=== PATIENT | male | born 1995 | race Caucasian/White ===

== ENCOUNTER → 2016-04-24 | Day surgery (SDC) | payer OTHER ==
[~2016-04-24] MED LIST: LIDOCAINE 1% INJ-PF (10 MG/ML) 30 ML SDV ONE
== END ==
LOC: RAD 12:25
PROVIDERS: ATTEND Orthopaedic Surgery
PROC: BP0 Imaging, Non-Axial Upper Bones, Plain Radiography (ICD-10-PCS; principal; 2016-04-24)
DX: M25.322 Other instability, left elbow (principal)
CPT/HCPCS: 73222; 73085; 77002; A9576; J3490

== ENCOUNTER 2016-05-29 10:20 | Day surgery (SDC) | payer OTHER ==
[2016-05-22 10:22] LABS: APPEARANCE,URINE CLEAR; BILIRUBIN,URINE NEGATIVE (NEGATIVE); GLUCOSE, URINE NEGATIVE (NEGATIVE); KETONES,URINE TRACE mg/dL (NEGATIVE); LEUKOCYTE ESTERASE,URINE NEGATIVE (NEGATIVE); NITRITE,URINE NEGATIVE (NEGATIVE); PROTEIN,URINE NEGATIVE (NEGATIVE); URINE SPECIFIC GRAVITY 1.017; UROBILINOGEN,URINE NEGATIVE mg/dL (<2.0)
[2016-05-22 10:48] LABS: ABSOLUTE EOSINOPHILS # (AUTO) 0.3 10^3/uL (0.0-0.6); ABSOLUTE LYMPHOCYTES (AUTO) 2.5 10^3/uL (0.5-4.7); ABSOLUTE MONOCYTES (AUTO) 0.8 10^3/uL (0.1-1.4); ABSOLUTE NEUT (AUTO) 3.5 10^3/uL (1.7-8.2); BASOPHILS % (AUTO) 0.6 % (0-2); EOSINOPHILS % (AUTO) 4.2 % (0-6); HEMATOCRIT 46.5 % (37.9-51.0); HEMOGLOBIN 16.3 g/dL (13.5-17.0); HGB HCT DIFFERENCE 2.4; LYMPHOCYTES % (AUTO) 35.4 % (13-45); MEAN CORPUSCULAR HEMOGLOBIN 30.1 pg (27.0-33.4); MEAN CORPUSCULAR HGB CONC 35.2 g/dL (32.0-36.0); MEAN CORPUSCULAR VOLUME 86 fl (80-97); MONOCYTES % (AUTO) 10.6 % (3-13); RED BLOOD COUNT 5.43 10^6/uL (4.35-5.55); RED CELL DISTRIBUTION WIDTH 13.1 % (11.5-14.0); SEGMENTED NEUTROPHILS % (AUTO) 49.2 % (42-78); WHITE BLOOD COUNT 7.1 10^3/uL (4.0-10.5)
--- NOTE | 2016-05-22 11:01 | EKG REPORT ---
SEVERITY:- OTHERWISE NORMAL ECG - SINUS BRADYCARDIA : Confirmed by: Alan Wharton 22-May-2016 11:01:02
[2016-05-22 11:09] LABS: ANION GAP 13 (5-19); BLOOD UREA NITROGEN 15 mg/dL (7-20); CALCIUM 10.1 mg/dL (8.4-10.2); CARBON DIOXIDE 29 mmol/L (22-30); CHLORIDE 103 mmol/L (98-107); CREATININE RESULT 1.01 mg/dL (0.52-1.25); GLUCOSE 70 mg/dL (75-110); POTASSIUM 4.4 mmol/L (3.6-5.0); SODIUM 145.3 mmol/L (137-145)
[~2016-05-29 10:20] MED LIST changes: +BUPIVACAINE HCL 0.5 % INJ/PF 30 ML SDV ONE; +LACTATED RINGERS 1000 ML IV PRN; -LIDOCAINE 1% INJ-PF (10 MG/ML) 30 ML SDV ONE
[2016-05-29] MEDS ORDERED: CEFAZOLIN 2 GM/D5W RTU 2 GM/50 ML RTUPB IV ONE (10:30)
[2016-05-29] MEDS ORDERED: HYDROMORPHONE HCL INJ/PF 2 MG/ML AMPULE ONE ×2 (13:50→16:36)
[2016-05-29] MEDS ORDERED: MIDAZOLAM 2 MG/2 ML INJ ONE (13:51)
[2016-05-29] MEDS ORDERED: FENTANYL CITRATE INJ/PF 100 MCG/2 ML AMPUL ONE (13:51)
[2016-05-29] MEDS ORDERED: PROPOFOL INJ 200 MG/20 ML VIAL IV ONE (13:51)
[2016-05-29] MEDS ORDERED: FENTANYL CITRATE INJ/PF 100 MCG/2 ML AMPUL IV PRN ×3 (14:33)
[2016-05-29] MEDS ORDERED: MORPHINE SULFATE 10 MG/ML INJ IV PRN ×2 (14:33→16:31)
[2016-05-29] MEDS ORDERED: DIPHENHYDRAMINE HCL 50 MG/ML VIAL IV PRN (14:33)
[2016-05-29] MEDS ORDERED: MEPERIDINE HCL/PF INJ 25 MG/1 ML DISP.SYRIN IV PRN (14:33)
[2016-05-29] MEDS ORDERED: PROMETHAZINE HCL INJ 25 MG/1 ML VIAL IV PRN (14:33)
[2016-05-29] MEDS ORDERED: LIDOCAINE 2% INJ-PF (20 MG/ML) 10 ML AMPUL ONE (14:49)
[2016-05-29] MEDS ORDERED: DEXAMETHASONE SOD PHOSPHATE INJ 4 MG/1 ML VIAL ONE (14:49)
[2016-05-29] MEDS ORDERED: ONDANSETRON HCL INJ/PF 4 MG/2 ML SDV ONE (14:49)
[2016-05-29] MEDS ORDERED: SUCCINYLCHOLINE CHLORIDE INJ 200 MG/10 ML VIAL ONE (14:49)
[2016-05-29] MEDS ORDERED: OXYCODONE-ACETAMINOPHEN 5-325 MG TABLET PO PRN (16:31)
--- NOTE | 2016-05-29 16:31 | PDOC DISCHARGE SUMMARY ---
Discharge Summary (SDC) - Discharge Final Diagnosis: Left elbow contracture Date of Surgery: 05/29/16 Discharge Date: 05/29/16 Condition: Good Treatment or Instructions: Schedule Follow Up w/ Dr. Moreno Yousif @ [facility] to be seen in 10-14 days or as scheduled Morgan: Dana: [place]: Keep splint clean/dry/intact. Ice and elevate May begin finger range of motion attempting to make full fist. Stool softener of choice when on pain medication. Prescriptions: Oxycodone HCl/Acetaminophen [Percocet 5-325 mg Tablet] 1 - 2 tab PO ASDIR PRN # 50 tablet PRN Reason: Discharge Diet: As Tolerated Respiratory Treatments at Home: Deep Breathing/Coughing Discharge Activity: No Lifting Over 10 Pounds, No Lifting/Push/Pulling Report the Following to Your Physician Immediately: Increase in Pain, Fever over 101 Degrees, Unusual Bleeding, Redness, Swelling, Warmth, Increased Soreness, Drainage-Foul Smelling, Numbness, Tingling Sensation
[2016-05-29] MEDS ORDERED: KETOROLAC TROMETHAMINE INJ/PF 30 MG/1 ML SDV ONE (16:36)
[2016-05-29] MEDS ORDERED: ACETAMINOPHEN 100 ML IV ONE (16:37)
--- NOTE | 2016-05-29 16:43 | Operative Report ---
Operative Report DATE OF SURGERY: 05/29/16 PREOPERATIVE DIAGNOSIS: Contracture Left Elbow w/ Ulnar Nerve Compression POSTOPERATIVE DIAGNOSIS: Same OPERATION: Left Cubital Tunnel Release w/ Ulnar Nerve Subcutaneous Transposition , Capsulotomy w/ Release Posterior Bundle UCL SURGEON: LAILA LEVI ANESTHESIA: GA COMPLICATIONS: None ESTIMATED BLOOD LOSS: Minimal PROCEDURE: Indication for above procedure: 21-year-old male who sustained a closed dislocation July 2015. Patient subsequently continued to have pain and instability underwent lateral ulnar collateral ligament reconstruction. Patient's instability improved but continued to have stiffness. At that point an MRI was ordered demonstrating no evidence of intra-articular derangement or ligamentous disruption. We then discussed treatment options including operative versus nonoperative intervention. After discussing treatment options patient consented for the surgical procedure. Procedure In Detail: Patient was seen and evaluated in the preoperative holding area. The LEFT upper extremity was initialized and marked. Patient received 2g of Ancef IV for bacterial prophylaxis. Patient was taken back to the operative room where transferred to the operative table and placed under general anesthesia. Once they were adequately anesthetized a nonsterile tourniquet was placed on the upper extremity. A surgical team debriefing was performed ensuring all instrumentation was available, the surgical procedure was discussed with possible concerns reviewed. Prior to formal prepping and draping C-arm fluoroscopy was obtained for examination under anesthesia. There is no evidence of medial or lateral stability, negative pivot shift test. The upper extremity was prepped with ChloraPrep and draped in a sterile fashion. A timeout was done identifying correct patient, procedure and extremity everyone in attendance agree with this and verbalized no concerns. The extremity was exsanguinated the tourniquet was inflated to 250 mmHg. A longitudinal skin incision was made centered over the cubital tunnel 6 cm proximal to the medial epicondyle 4 cm distal. Blunt dissection was performed to the subcutaneous tissue branches of the medial antebrachial cutaneous nerve were identified and retracted. Proximally the ulnar nerve was identified. Neurolysis was performed to the medial triceps. Dissection of the medial intermuscular septum was excised. During neurolysis the posterior vasculature accompanying the ulnar nerve was freed with the overlying soft tissue and transposed anteriorly with the nerve. The nerve was marked with a vessel loop and continued to be free of compression distally as it entered the 2 heads of the flexor carpi ulnaris. The first motor branch of the ulnar nerve was identified and neurolysed and transposed anteriorly with the nerve. The nerve did demonstrate compression as it entered the cubital tunnel with notable edema. Once the nerve was transposed anteriorly the posterior bundle of the ulnar collateral ligament was identified. The posterior bundle was released distal to proximally. Once the release was complete patient's passive flexion significant improved to greater than 150. There is no crepitus with range of motion. I then carefully elevated the posterior triceps releasing any posterior capsule from the humerus. The anterior capsule was also elevated proximally off the humerus. I then proceeded with ulnar nerve transposition. A small pouch was established anterior to the medial epicondyle. This was then secured with interrupted 2-0 Vicryl suture while maintaining a [place] over the nerve to ensure no significant compression occurred. With elbow flexion and extension there is no evidence of nerve compression or kinking proximally or distally. I then obtained C-arm fluoroscopy which demonstrated no evidence of medial or lateral collateral ligament disruption. No evidence of joint malalignment. The wound was then irrigated with normal saline and the tourniquet was deflated. A peripheral vasculature was coagulated with bipolar cautery until the wound was dry. 20 mL of 0.5% Marcaine without epinephrine was injected for postoperative pain control. Subcutaneous tissues were closed with interrupted 3-0 Monocryl skin was closed with felix. Wound was dressed with Xeroform, 4 x 4's and ABDs. Patient was placed in a posterior splint at 90 . Sponge counts, instrument counts, needle counts counts were correct. Patient was then awoken from anesthesia. Transferred from the operating room table to the operating room stretcher. There was no intraoperative complications patient tolerated procedure well stable to PACU. Postoperative plan: Patient will follow-up in the office in 2 weeks. Prior to his 2 week appointment we will set him up with occupational therapy beginning 06/01/16 focusing on aggressive flexion and extension range of motion.
[2016-05-29 18:36] VITALS: BP 120/70
== END 2016-05-29 18:25 | disposition home or self-care (01) ==
LOC: OROUT 10:20
PROVIDERS: ATTEND Orthopaedic Surgery
PROC: 0RNM0ZZ Release Left Elbow Joint, Open Approach (ICD-10-PCS; 2016-05-29)
PROC: 0MN Bursae and Ligaments, Release (ICD-10-PCS; 2016-05-29)
PROC: 01N40ZZ Release Ulnar Nerve, Open Approach (ICD-10-PCS; principal; 2016-05-29 13:45)
DX: M24.522 Contracture, left elbow (principal); G56.22 Lesion of ulnar nerve, left upper limb; M25.522 Pain in left elbow
CPT/HCPCS: 93005; 36415; 85025; 80048; 81001; 71020; 73070; 93010; 64718; 24006; 24999; J2250; J1100; J1885; J2270; J1170; J0330; J2405; J2704; J3490; J0690; J0131; 01710; J3010